=== PATIENT | female | born 1940 | race Asian ===

== ENCOUNTER 2021-05-12 20:38 | Emergency (ER) | payer OTHER, MEDICARE ==
[2021-05-12 20:45] VITALS: BP 167/94; PULSE 63; TEMP 98.7; BMI 21.0
== END 2021-05-12 22:14 | disposition home or self-care (01) ==
LOC: JERFT 20:38
PROC: 0HQGXZZ Repair Left Hand Skin, External Approach (ICD-10-PCS; principal; 2021-05-12)
DX: S61.412A Laceration without foreign body of left hand, initial encounter (principal); W25.XXXA Contact with sharp glass, initial encounter; W01.0XXA Fall on same level from slipping, tripping and stumbling without subsequent striking against object, initial encounter
CPT/HCPCS: 73130-TC-LT-FY; 99282-25

== ENCOUNTER 2021-05-14 16:39 | Emergency (ER) | payer OTHER, MEDICARE ==
[2021-05-14 16:45] VITALS: BP 151/88; PULSE 59; TEMP 98; BMI 21.0
== END 2021-05-14 17:25 | disposition home or self-care (01) ==
LOC: JERFT 16:39 → JER 16:39 → JERFT 17:25
DX: Z48.00 Encounter for change or removal of nonsurgical wound dressing (principal)
CPT/HCPCS: 99281-25

== ENCOUNTER 2021-05-19 16:21 | Emergency (ER) | payer OTHER, MEDICARE ==
[2021-05-19 16:25] VITALS: BP 169/65; PULSE 62; TEMP 98.5; BMI 21.0
== END 2021-05-19 17:39 | disposition home or self-care (01) ==
LOC: JERFT 16:21 → JER 16:21 → JERFT 17:39
DX: S61.411A Laceration without foreign body of right hand, initial encounter (principal); Y99.9 Unspecified external cause status; Z48.02 Encounter for removal of sutures
CPT/HCPCS: 99281-25